=== PATIENT | female | born 1960 | race Caucasian/White ===

== ENCOUNTER 2022-02-25 06:48 | Observation (INO) ==
[2022-02-25] MEDS ORDERED: Ondansetron 4 MG/2 ML VIAL IVP ONE ×2 (07:01→07:48)
[2022-02-25] MEDS ORDERED: Ketorolac 30 MG/ML VIAL IVP ONE (07:01)
[2022-02-25 07:33] LABS: Basophils % 0.3 %; Eosinophils # 0.1 K/mcL (0.0-0.6); Eosinophils % 0.9 %; Hematocrit 46.7 % (35.3-44.9); Immature Granulocytes % 0.1 % (0-4); Lymphocytes # 2.2 K/mcL (0.6-4.6); Lymphocytes % 28.6 %; Mean Corpuscular HGB Conc 34.3 g/dL (31.6-35.5); Mean Corpuscular Hemoglobin 28.8 pg (28.0-33.3); Mean Corpuscular Volume 84.1 fL (83.0-100.0); Mean Platelet Volume 9.6 fL (9.4-12.4); Monocytes # 0.4 K/mcL (0.0-1.3); Platelet Count 328 K/mcL (140-400); Red Blood Count 5.55 M/mcL (3.82-4.97); Red Cell Distribution Width 13.6 % (11.5-14.5); Segmented Neutrophils % 65.1 %; White Blood Count 7.7 K/mcL (4.3-11.1)
[2022-02-25] MEDS ORDERED: *HR* HYDROmorphone (PF) 1 MG/ML SYRINGE IVP ONE ×3 (07:48→20:47)
[2022-02-25] MEDS ORDERED: 0.9 % Sodium Chloride 1,000 ML IVC ONE (07:49)
[2022-02-25] MEDS ORDERED: *HR* Promethazine 25 MG/ML VIAL IM ONE (08:42)
[2022-02-25] MEDS ORDERED: Naloxone 0.4 MG/ML INJ IVP PRN (09:03)
[2022-02-25] MEDS ORDERED: D5% in Water 1,000 ML IVC PRN (09:07)
[2022-02-25] MEDS ORDERED: Dextrose Gel 15 GM/37.5 ML TUBE PO PRN ×2 (09:07)
[2022-02-25] MEDS ORDERED: *HR* Dextrose 50 % in Water (Syg) 50 ML SYRINGE IVP PRN (09:07)
[2022-02-25 09:08] LABS: BUN/Creatinine Ratio 12 (6-26); Blood Urea Nitrogen 9 mg/dL (8-23); Calcium 8.8 mg/dL (8.6-10.3); Carbon Dioxide 23 mEq/L (23-29); Chloride 109 mEq/L (98-107); Glucose 114 mg/dL (70-105); Osmolality,Calculated 290 (280-300); Potassium 3.6 mEq/L (3.5-5.1); Sodium 140 mEq/L (136-145); eGFR For African Americans > 60 (> 60); eGFR For Non-African Americans > 60 (> 60)
[2022-02-25] MEDS: Insulin LISPRO 300 UNITS/3 ML VIAL SUBQ SCH ×2 (12:49→15:37)
[2022-02-25] MEDS: Ondansetron 4 MG/2 ML VIAL IVP PRN (13:09)
[2022-02-25] MEDS ORDERED: Prochlorperazine 10 MG/2 ML VIAL IVP ONE (19:40)
[2022-02-26] MEDS: Insulin LISPRO 300 UNITS/3 ML VIAL SUBQ SCH ×2 (02:15→07:14)
[2022-02-26] MEDS ORDERED: *HR* OxyCODONE Immed Rel 5 MG TABLET PO PRN ×5 (05:28→10:22)
[2022-02-26] MEDS ORDERED: *HR* Midazolam HCl 2 MG/2 ML VIAL ONE (07:07)
[2022-02-26] MEDS ORDERED: *HR* Propofol 200 MG/20 ML VIAL IVP ONE (07:07)
[2022-02-26] MEDS ORDERED: *HR* FentaNYL (PF) 100 MCG/2 ML VIAL ONE (07:07)
[2022-02-26] MEDS ORDERED: Lidocaine -MPF 2% 5 ML VIAL ONE (07:09)
[2022-02-26] MEDS ORDERED: Iopamidol - 300 50 ML VIAL ONE (07:18)
[2022-02-26] MEDS ORDERED: Ondansetron 4 MG/2 ML VIAL IVP PRN ×2 (07:45→10:22)
[2022-02-26] MEDS ORDERED: Promethazine 6.25 MG in Water for inj. (sterile) 20 ML IVPB PRN (07:45)
[2022-02-26] MEDS ORDERED: Ondansetron 4 MG/2 ML VIAL ONE (08:19)
[2022-02-26] MEDS: *HR* HYDROmorphone PF 0.5 MG/0.5 ML SYRINGE IVP PRN ×3 (08:39→09:45)
[2022-02-26] MEDS: Ondansetron 4 MG/2 ML VIAL IVP PRN (09:10)
[2022-02-26] MEDS ORDERED: *HR* Belladonna Alkaloids/Opium 30 MG RECTAL SUPPOSITORY RC ONE (09:17)
[2022-02-26] MEDS ORDERED: D5% in Water 1,000 ML IVC PRN (10:22)
[2022-02-26] MEDS ORDERED: *HR* Dextrose 50 % in Water (Syg) 50 ML SYRINGE IVP PRN (10:22)
[2022-02-26] MEDS ORDERED: Naloxone 0.4 MG/ML INJ IVP PRN (10:22)
[2022-02-26] MEDS ORDERED: Dextrose Gel 15 GM/37.5 ML TUBE PO PRN ×2 (10:22)
[2022-02-26] MEDS ORDERED: *HR* HYDROmorphone (PF) 1 MG/ML SYRINGE IVP ONE (10:34)
[2022-02-26 11:08] VITALS: TEMP 97.6
[2022-02-26] MEDS ORDERED: Insulin LISPRO 300 UNITS/3 ML VIAL SUBQ SCH (12:00)
[2022-02-26 12:49] VITALS: BP 133/77; PULSE 101; O2SAT 96
== END 2022-02-26 13:15 | disposition home or self-care (01) ==
LOC: EDBD → 3BNU 06:48 → EMEROOARM 06:48 → MERGE 11:45 → SUATTDRO 11:45 → 3BNU 13:17
PROVIDERS: ADMIT Internal Medicine; ATTEND Registered Nurse